=== PATIENT | male | born 1985 | race Caucasian/White ===

== ENCOUNTER → 2019-03-27 | Outpatient (REF) | LOC: M LAB 13:22 | PROVIDERS: ATTEND Nurse Practitioner Adult Health | DX: Z02.1 Encounter for pre-employment examination (principal) ==

== ENCOUNTER → 2019-08-13 | Outpatient (REF) | LOC: M LAB 15:07 | PROVIDERS: ATTEND Nurse Practitioner Adult Health | DX: Z02.1 Encounter for pre-employment examination (principal) ==